=== PATIENT | female | born 1995 | race Two or more races ===

== ENCOUNTER 2022-08-04 21:01 | Emergency (ER) | payer OTHER ==
[~2022-08-04] VITALS: Ht 162.6 cm; Wt 54.4 kg
[~2022-08-04 21:01] MED LIST: LO/OVRAL-281 TAB PO; ONDANSETRON ODT8 MG PO
== END 2022-08-05 00:54 | disposition home or self-care (01) ==
LOC: ER 21:01
DX: O21.0 Mild hyperemesis gravidarum (principal); Z3A.08 8 weeks gestation of pregnancy; Z20.822 Contact with and (suspected) exposure to COVID-19

== ENCOUNTER 2022-08-06 17:34 | Emergency (ER) | payer OTHER ==
[~2022-08-06] VITALS: Ht 149.9 cm; Wt 60.3 kg
== END 2022-08-07 13:25 | disposition home or self-care (01) ==
LOC: ER 17:34
DX: O26.891 Other specified pregnancy related conditions, first trimester (principal); Z3A.09 9 weeks gestation of pregnancy; R10.32 Left lower quadrant pain; R11.2 Nausea with vomiting, unspecified

== ENCOUNTER 2022-08-08 02:11 | Inpatient (IN) | payer OTHER ==
[~2022-08-08] VITALS: Ht 149.9 cm; Wt 60.8 kg
== END 2022-08-10 13:00 | disposition home or self-care (01) | DRG 833 ==
LOC: ER 02:11 → OB/GYN 09:21 → SEC-K 09:21 → OB/GYN 10:57
PROVIDERS: ADMIT Obstetrics & Gynecology Gynecology; ATTEND Obstetrics & Gynecology Gynecology
PROC: 4A1HXCZ Monitoring of Products of Conception, Cardiac Rate, External Approach (ICD-10-PCS; principal; 2022-08-08)
PROC: BW40ZZZ Ultrasonography of Abdomen (ICD-10-PCS; 2022-08-08)
DX: O21.0 Mild hyperemesis gravidarum (principal); Z3A.09 9 weeks gestation of pregnancy; Z20.822 Contact with and (suspected) exposure to COVID-19

== ENCOUNTER 2023-02-17 12:13 | Outpatient (CLI) | payer OTHER | END 2023-02-17 13:16 | disposition home or self-care (01) | LOC: NST 12:13 | PROVIDERS: ATTEND Obstetrics & Gynecology Gynecology | DX: Z34.83 Encounter for supervision of other normal pregnancy, third trimester (principal) ==

== ENCOUNTER 2023-03-08 11:20 | Inpatient (IN) | payer OTHER ==
[~2023-03-08] VITALS: Ht 149.9 cm; Wt 73.5 kg
[2023-03-08] MEDS ORDERED: PRENATAL CAPLE1 EAC1 (11:39)
== END 2023-03-10 16:06 | disposition home or self-care (01) | DRG 807 ==
LOC: OB/GYN 11:20 → LDR 11:20 → OB/GYN 16:24
PROVIDERS: ADMIT Obstetrics & Gynecology Gynecology; ATTEND Obstetrics & Gynecology Gynecology
PROC: 10E0XZZ Delivery of Products of Conception, External Approach (ICD-10-PCS; principal; 2023-03-08)
PROC: 0KQM0ZZ Repair Perineum Muscle, Open Approach (ICD-10-PCS; 2023-03-08)
PROC: 4A1HXCZ Monitoring of Products of Conception, Cardiac Rate, External Approach (ICD-10-PCS; 2023-03-08)
DX: O70.1 Second degree perineal laceration during delivery (principal); Z37.0 Single live birth; Z3A.39 39 weeks gestation of pregnancy; Z20.822 Contact with and (suspected) exposure to COVID-19